=== PATIENT | female | born 1995 | race Hispanic/Latino ===

== ENCOUNTER → 2024-05-21 | Day surgery (SDC) | payer BC ==
[~2024-05-21] MED LIST: FENTANYL CITRATE/PF 100MCG/2 ML INJ ONE; LIDOCAINE HCL 2% LOCAL INJ 5 ML SDV VIAL INJ ONE; METOCLOPRAMIDE HCL 10 MG/2ML VIAL ONE; PROPOFOL IV EMULSION 10 MG/ML 20 ML VIAL ONE
[2024-05-21] MEDS: LACTATED RINGER'S 1,000 ML ONE (06:29)
[2024-05-21 07:33] VITALS: TEMP 98.5
[2024-05-21 08:00] VITALS: BP 110/73; PULSE 76; RESP 16; O2SAT 97
== END | disposition home or self-care (01) ==
LOC: OR 05:19
PROVIDERS: ATTEND Internal Medicine Gastroenterology
DX: K29.50 Unspecified chronic gastritis without bleeding (principal); K31.7 Polyp of stomach and duodenum; K20.90 Esophagitis, unspecified without bleeding; K21.9 Gastro-esophageal reflux disease without esophagitis; R19.7 Diarrhea, unspecified; Z71.3 Dietary counseling and surveillance; E78.5 Hyperlipidemia, unspecified; E66.01 Morbid (severe) obesity due to excess calories; R73.03 Prediabetes; R03.0 Elevated blood-pressure reading, without diagnosis of hypertension; Z71.89 Other specified counseling; E28.2 Polycystic ovarian syndrome; Z68.41 Body mass index [BMI] 40.0-44.9, adult
CPT/HCPCS: 43239; 81025; J2001; J2470; J2704; J2765; J3010; J7121

== ENCOUNTER → 2024-06-17 | Outpatient (REF) | payer OTHER | LOC: US 08:23 | PROVIDERS: ATTEND Nurse Practitioner | DX: R10.10 Upper abdominal pain, unspecified (principal); K29.70 Gastritis, unspecified, without bleeding | CPT/HCPCS: 76700; 78227; 81025; A9537 ==